=== PATIENT | male | born 1945 | race Hispanic/Latino ===

== ENCOUNTER 2017-06-11 13:32 | Outpatient (CLI) | payer MEDICARE ==
--- NOTE | 2017-06-11 14:19 | XRay Report ---
XRAY CHEST TWO VIEWS: 06/11/17 13:32:00 CLINICAL: Wheezing. COMPARISON: 12/13/15 FINDINGS: Normal heart and pulmonary vasculature. Lungs are mildly hyperexpanded and hyperlucent. No airspace disease or pleural effusion.Multiple old right rib fractures. Severe arthritis of the right shoulder unchanged since the last exam. IMPRESSION: COPD.No CHF or pneumonia.
== END 2017-06-11 13:33 | disposition home or self-care (01) ==
LOC: SPVIMAG 13:32
PROVIDERS: ATTEND Internal Medicine
DX: J44.9 Chronic obstructive pulmonary disease, unspecified (principal); M19.011 Primary osteoarthritis, right shoulder; S22.41XD Multiple fractures of ribs, right side, subsequent encounter for fracture with routine healing; X58.XXXD Exposure to other specified factors, subsequent encounter
CPT/HCPCS: 71020